=== PATIENT | female | born 1955 | race Caucasian/White ===

== ENCOUNTER → 2017-11-18 | Outpatient (CLI) | payer OTHER ==
--- NOTE | 2017-11-18 12:12 | DIAGNOSTIC IMAGING REPORT ---
R ANKLE MIN 3 VIEWS ROUTINE HISTORY: 62 years-old Female RIGHT LEG PAIN acute right leg pain COMPARISON: Right tibia and fibula radiographs of same day TECHNIQUE: 3 views of the right ankle FINDINGS: Mild tibiotalar and distal talofibular marginal spurring with subchondral sclerosis. No acute fracture, dislocation or osteochondral defect. Mild anterolateral soft tissue swelling about the ankle. No opaque foreign body or large joint effusion. IMPRESSION: Mild soft tissue swelling without fracture. The above report was generated using voice recognition software. It may contain grammatical, syntax or spelling errors. Electronically signed by: Jose Mckeon M.D. 11/18/2017 12:10 PM Dictated Date/Time: 11/18/2017 12:09 PM
--- NOTE | 2017-11-18 12:17 | DIAGNOSTIC IMAGING REPORT ---
R TIBIA/FIBULA 2 VIEWS ROUTINE CLINICAL HISTORY: RIGHT LEG PAIN pain COMPARISON: None. DISCUSSION: The bones and joint spaces appear intact. There is no evidence of fracture, dislocation or bony disease. There is no evidence for soft tissue swelling. IMPRESSION: Negative study. The above report was generated using voice recognition software. It may contain grammatical, syntax or spelling errors. Electronically signed by: Rodríguez Hayden M.D. 11/18/2017 12:15 PM Dictated Date/Time: 11/18/2017 12:03 PM
--- NOTE | 2017-11-18 12:29 | DIAGNOSTIC IMAGING REPORT ---
RIGHT KNEE 2 VIEWS HISTORY: RIGHT LEG PAIN COMPARISON: None. FINDINGS: There is no fracture or dislocation. Soft tissues are unremarkable. No radiopaque foreign bodies. No knee effusion. IMPRESSION: No fractures. Electronically signed by: Everette Santo M.D. 11/18/2017 12:27 PM Dictated Date/Time: 11/18/2017 12:15 PM
== END | disposition home or self-care (01) ==
LOC: C.RAD 11:23
PROVIDERS: ATTEND Family Medicine
DX: M79.604 Pain in right leg (principal); M79.89 Other specified soft tissue disorders